=== PATIENT | female | born 1995 | race Caucasian/White ===

== ENCOUNTER → 2020-11-10 08:06 | Outpatient (CLI) | payer OTHER, SELFPAY ==
--- NOTE | 2020-11-10 08:10 | DI.US.S_ITS ---
PROCEDURE: US OB <= 14 WEEKS FETUS INDICATIONS: DATING. FOLLOW UP EXTREME PAIN WITH NO BLEEDING 10/24 OUTSIDE/PRIOR DATING DATA: Last menstrual period (LMP): Uncertain LMP-based estimated date of delivery (MADDIE): Uncertain First dating scan (date and location): This study Estimated date of delivery (MADDIE) from first dating scan: 06/30/21, +/-5 days. TECHNIQUE: Real-time scanning was performed of the fetus and maternal pelvic organs, with image documentation. Endovaginal scanning was also performed to better visualize the fetus and maternal ovaries. COMPARISON: None. FINDINGS: There is a single living intrauterine gestation with heart rate 127 beats per minute and a crown-rump length of 9 mm that correlates with a gestational age of 6 weeks 6 days, +/-5 days. Measurement variability in dating: +/- 4 weeks by LMP, +/- 7 days by mean sac diameter (use before 6 weeks gestation if crown-rump length not able to be measured), +/- 5 days by crown-rump length (up to 8 weeks 6 days gestation), +/- 7 days by crown-rump length (up to 13 weeks 6 days gestation). Maternal organs: Ovaries normal considering gestational status . IMPRESSION: Single living intrauterine gestation with delivery date projected to be centered on 06/30/21, +/-5 days. Dictated by: Vikash Carter M.D. on 11/10/2020 at 16:46 Approved by: Vikash Carter M.D. on 11/10/2020 at 16:48
== END ==
PROVIDERS: Referring Provider Family Medicine; Visit Provider Family Medicine
DX: Z34.01 Encounter for supervision of normal first pregnancy, first trimester (principal); Z3A.01 Less than 8 weeks gestation of pregnancy
CPT/HCPCS: 76801; 76817

== ENCOUNTER → 2020-11-21 12:20 | Outpatient (CLI) | payer OTHER, SELFPAY ==
--- NOTE | 2020-11-21 12:22 | DI.US.S_ITS ---
PROCEDURE: US OB <= 14 WEEKS FETUS INDICATIONS: VIABILITY, R/O ECTOPIC OUTSIDE/PRIOR DATING DATA: Last menstrual period (LMP): Unknown. LMP-based estimated date of delivery (MADDIE): Unknown First dating scan (date and location): 11/10/20 Estimated date of delivery (MADDIE) from first dating scan: 06/30/21 TECHNIQUE: Real-time scanning was performed of the fetus and maternal pelvic organs, with image documentation. Endovaginal scanning was also performed to better visualize the fetus and maternal ovaries. COMPARISON: [facility], OB <= 14 WEEKS FETUS, 11/10/2020, 8:40. FINDINGS: Embryo: Single living intrauterine fetus is present. [place]-rump length measures 1.9 cm, 8 weeks 3 days. Small perigestational hemorrhage is seen measuring 1.4 x 0.8 x 1.4 cm. Heart rate: 178 beats per minute Measurement variability in dating: +/- 4 weeks by LMP, +/- 7 days by mean sac diameter (use before 6 weeks gestation if crown-rump length not able to be measured), +/- 5 days by crown-rump length (up to 8 weeks 6 days gestation), +/- 7 days by crown-rump length (up to 13 weeks 6 days gestation). Maternal organs: Ovaries are unremarkable except for a left-sided presumed corpus luteum. IMPRESSION: 8 weeks 3 days single living intrauterine fetus. Small perigestational hemorrhage Dictated by: Timothy Bonilla M.D. on 11/21/2020 at 15:16 Approved by: Timothy Bonilla M.D. on 11/21/2020 at 15:18
== END ==
PROVIDERS: Referring Provider Obstetrics & Gynecology; Visit Provider Obstetrics & Gynecology
DX: O36.80X0 Pregnancy with inconclusive fetal viability, not applicable or unspecified; Z3A.08 8 weeks gestation of pregnancy
CPT/HCPCS: 76801; 76817

== ENCOUNTER → 2021-02-09 09:15 | Outpatient (CLI) | payer OTHER, SELFPAY ==
[2021-02-09 11:11] LABS: Add Manual Diff / Slide Review NO; Basophils Absolute Auto 0 /uL (0-100); Basophils Percent Auto 0.3 % (0-2); Eosinophils Absolute Auto 100 /uL (0-450); Eosinophils Percent Auto 0.9 % (2-4); Hematocrit 34.1 % (36-46); Hemoglobin 11.5 g/dL (12.0-16.0); Lymphocytes Absolute Auto 1500 /uL (1100-4500); Lymphocytes Percent Auto 14.5 % (25-40); Mean Corpuscular HGB Conc 33.8 % (30-36); Mean Corpuscular Hemoglobin 31.1 PG (26-34); Mean Corpuscular Volume 91.9 fL (80-100); Monocytes Absolute Auto 500 /uL (0-900); Monocytes Percent Auto 4.7 % (3-14); Neutrophils Absolute Auto 8400 /uL (1500-7000); Neutrophils Percent Auto 79.6 % (50-75); Platelet Count 226 X10^3/uL (150-400); Red Cell Distribution Width 13.1 % (11.6-14.8); White Blood Cell Count 10.5 X10^3/uL (4.5-11.0)
[2021-02-09 12:25] LABS: Appearance Urine UA CLEAR; Bilirubin Urine UA NEGATIVE (NEGATIVE); Color Urine UA YELLOW; Glucose Urine UA NEGATIVE (Negative); Ketones Urine UA NEGATIVE (NEGATIVE); Leukocyte Esterase Urine UA NEGATIVE (NEGATIVE); Nitrite Urine UA NEGATIVE (Negative); Occult Blood Urine UA NEGATIVE (Negative); Protein Urine UA NEGATIVE (Negative); Specific Gravity Urine UA <=1.005 (1.000-1.035); Urobilinogen Urine UA 0.2 E.U./dL (0.2)
[2021-02-09 18:11] LABS: Rubella Antibody IgG 21.9 IU/mL (>15)
[2021-02-09 18:22] LABS: HIV 1 & 2 Ab/Ag 4th Gen Combo NEGATIVE (NEGATIVE); Hep C Virus Ab w/Reflex Quant NEGATIVE s/c (NEGATIVE)
[2021-02-09 18:58] LABS: Hepatitis B Surface Antigen NEGATIVE s/c (NEGATIVE)
[2021-02-10 07:09] LABS: RPR Screen Non Reactive (Non Reactive)
[2021-02-10 11:26] LABS: Varicella IgG Antibody 238 index (Immune >165)
[2021-02-11 20:39] LABS: AFP, Serum 51.7 ng/mL (.); Estriol, Free 2.45 ng/mL (.); Inhibin A, Dimeric 100.02 pg/mL (.); Inhibin A, MoM 0.55 (.); Maternal Ethnicity Caucasian (.); Maternal Weight 170 lbs (.); Number of Fetuses No (.); OSBR Risk 1 IN 10000 (.); Results Report (.); Test Results *Screen Negative* (.); hCG, Serum 10779 mIU/mL (.)
== END ==
PROVIDERS: Referring Provider Obstetrics & Gynecology; Visit Provider Obstetrics & Gynecology
DX: Z34.02 Encounter for supervision of normal first pregnancy, second trimester (principal); Z3A.16 16 weeks gestation of pregnancy
CPT/HCPCS: 36415; 80055; 81003; 82105; 82677; 84702; 86336; 86787; 86803; 86850; 86900; 86901; 87086; 87389

== ENCOUNTER → 2021-03-10 14:03 | Outpatient (CLI) | payer OTHER, SELFPAY ==
--- NOTE | 2021-03-10 14:04 | DI.US.S_ITS ---
PROCEDURE: US OB >= 14 WEEKS FETUS INDICATIONS: ANATOMY SCAN OUTSIDE/PRIOR DATING DATA: Last menstrual period (LMP): Uncertain. First dating scan (date and location): [facility]; November 10, 2020 . Estimated date of delivery (MADDIE) from first dating scan: June 30, 2021 . TECHNIQUE: Real-time scanning was performed of the fetus, with image documentation and biometric measurements. COMPARISON: [facility], US, US OB >= 14 WEEKS FETUS, 02/09/2021, 9:04. FINDINGS: General: A single living intrauterine gestation is present. Presentation: Breech. Placenta: Placental position is posterior/fundal, without previa. Amniotic fluid index: 13.7 cm, normal range is 5-24 cm. heart rate: 152 beats per minute. Maternal cervical canal: 3 cm long. Normal lower limit is 2.5 cm. biometrics: Biparietal diameter: 5.6 cm Head circumference: 21.9 cm Abdominal circumference: 19.4 cm Femur length: 4.4 cm Estimated gestational age from initial scan: not applicable. Composite gestational age from present scan: 24 weeks Estimated weight and percentile: 672 g +/-99 g; 51 percentile Measurement variability for biometric dating: +/- 7 days from 14 weeks to 15 weeks 6 days gestation, +/- 10 days from 16 weeks to 21 weeks 6 days gestation, +/- 2 weeks from 22 weeks to 27 weeks 6 days gestation, +/- 3 weeks for 28 weeks gestation or later. weight reference: 4500 g or EFW >90/95% is considered macrosomia or large for gestational age. EFW <10% is small for gestational age. EFW 5% or less is considered intra-uterine growth restriction. Anatomic survey: Neuro: Ventricles are cerebellum are normal where visualized. Nuchal skin fold: Advanced gestational age. Face: Suboptimally visualized. Spine: Not well visualized, grossly normal. Heart: Suboptimally visualized. Diaphragm: Not well seen, grossly normal. Stomach: Left-sided stomach is present. Kidneys: Not well visualized, grossly normal. Cord: 3-vessel cord . Placental insertion not well seen. Bladder: Normal in size. Extremities: All 4 extremities identified. IMPRESSION: Live single intrauterine gestation as detailed above. Dictated by: Jaden Doty M.D. on 03/10/2021 at 16:22 Approved by: Jaden Doty M.D. on 03/10/2021 at 16:28
== END ==
PROVIDERS: PCP Obstetrics & Gynecology; Referring Provider Obstetrics & Gynecology; Visit Provider Obstetrics & Gynecology
DX: Z34.02 Encounter for supervision of normal first pregnancy, second trimester (principal); Z3A.24 24 weeks gestation of pregnancy
CPT/HCPCS: 76811

== ENCOUNTER → 2021-03-26 14:17 | Outpatient (CLI) | payer OTHER, SELFPAY ==
[2021-03-26 16:36] LABS: Hematocrit 31.9 % (36-46)
[2021-03-26 16:50] LABS: GTT (PREG) 1 Hour PP 50gm Dose 116 mg/dL (76-139)
== END ==
PROVIDERS: PCP Obstetrics & Gynecology; Referring Provider Obstetrics & Gynecology; Visit Provider Obstetrics & Gynecology
DX: Z34.02 Encounter for supervision of normal first pregnancy, second trimester (principal); Z3A.26 26 weeks gestation of pregnancy
CPT/HCPCS: 36415; 82950; 85014; 85018

== ENCOUNTER 2021-04-02 16:51 | Outpatient (CLI) | payer OTHER, SELFPAY ==
[2021-04-02 17:59] LABS: Appearance Urine UA CLEAR; Bilirubin Urine UA NEGATIVE (NEGATIVE); Color Urine UA YELLOW; Glucose Urine UA NEGATIVE (Negative); Ketones Urine UA NEGATIVE (NEGATIVE); Leukocyte Esterase Urine UA NEGATIVE (NEGATIVE); Nitrite Urine UA NEGATIVE (Negative); Occult Blood Urine UA NEGATIVE (Negative); Protein Urine UA NEGATIVE (Negative); Urobilinogen Urine UA 0.2 E.U./dL (0.2)
[2021-04-02 18:10] LABS: RBC Urine None Seen (0-5/HPF); Squamous Epithelial Cell Urine 1-5 /HPF (0-5/HPF); WBC Urine 0-1/HPF (0-5/HPF)
[2021-04-02 18:11] LABS: Bacteria Urine None Seen; Culture Indicated Urine Cult Not Indicated
--- NOTE | 2021-04-02 19:45 | PM.OBTRLD ---
Visit Information Visit Information Date of evaluation: 04/02/21 Primary OB Provider: Arely Barron On-call OB Provider: Kassidy Elias Reason for Evaluation: Yes pre-term labor Comments/Additional reasons for admission: concern for possible rupture membranes [facility] Medical History (Updated 04/02/21 @ 19:49 by Kassidy Elias MD) Abnormal Pap smear of cervix (~2015) Acne (~2018) Anxiety (~2015) Seasonal allergies Varicose veins of bilateral lower extremities with pain (~2017) Family History (Updated 11/14/20 @ 10:28 by Kady Evans RN) Mother Hypertension Uterine fibroid Father No problems noted. Grandmother Vertigo Grandfather Unknown family medical history Grandmother Unknown family medical history Grandfather Heavy smoker Lung cancer Social History marital status: unmarried,living together number of children: 2 household members: children (2 children partner's previous relationship, age 2 & 4. 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 ) special zen needs: No seatbelt use: always do you feel safe at home: Yes Smoking Status: Former smoker (While in [employer], socially, cigars & hookahs, 2 cigs/week.) Tobacco: How many years used: 2 quit status: has quit before second hand exposure: No alcohol intake: former (Pre-: social drinking) substance use type: does not use and prescription drug (Adderrall RX...took until she realized she was at 3 weeks.) during the past year weight has: remained stable well-balanced diet: daily or most days daily servings fruits/ve-4 caffeine: Yes (Normally a lot. Has really cut down. One cup a day. ) Type(s) of exercise: walking, yoga and normal ROM and activity (Lots of stretching.) frequency: daily duration: 45-60 minutes/day Review of Systems Review of Systems Narrative: Patient was concerned about possible leakage of fluid with a constant wetness. She was having some low back cramping sensation it has been increasing over the last few days when she gets home from work. No fevers. No bleeding. Objective Labs Labs: Laboratory Results - last 24 hr 04/02/21 17:20 Urine Color Yellow Urine Appearance Clear Urine pH 7.0 Ur Specific [place] 1.010 Urine Protein Negative Urine Glucose (UA) Negative Urine Ketones Negative Urine Occult Blood Negative Urine Nitrate Negative Urine Bilirubin Negative Urine Urobilinogen 0.2 Ur Leukocyte Esterase Negative Urine RBC None seen Urine WBC 0-1/hpf Ur Squamous Epith Cells 1-5 /hpf Urine Bacteria None seen Ur Culture Indicated? Cult not indicated Evaluation Evaluation Baseline heart rate: 150 Variability: Moderate (11-25) monitor accelerations: Present Monitor Decelerations: Absent Contraction Frequency (minutes): 0 Category of Tracing: Appropriate for gestational age Non-invasive Membranes Rupture Test: negative Diagnosis, Plan/Disposition Final Diagnosis (1) Low back pain during in second trimester: Status: Acute Plan/Disposition Plan: Patient with low back pain with no evidence of contractions, negative AmniSure. Patient reassured follow-up at her normal OB appointment. OB Disposition: home
== END 2021-04-02 17:50 | disposition home or self-care (01) ==
LOC: OB 04-07 11:15
PROVIDERS: PCP Obstetrics & Gynecology; Referring Provider Specialist; Visit Provider Specialist
DX: Z03.71 Encounter for suspected problem with amniotic cavity and membrane ruled out (principal); O26.892 Other specified pregnancy related conditions, second trimester; M54.50 Low back pain, unspecified; Z3A.27 27 weeks gestation of pregnancy
CPT/HCPCS: 59025; 81001; 84112; G0378; G0379

== ENCOUNTER → 2021-05-26 15:28 | Outpatient (CLI) | payer OTHER, SELFPAY ==
[2021-05-26 17:41] LABS: Urine N gonorrhoeae NOT DETECTED
[2021-05-26 18:02] LABS: Urine Chlamydia NOT DETECTED
== END ==
PROVIDERS: PCP Obstetrics & Gynecology; Referring Provider Obstetrics & Gynecology; Visit Provider Obstetrics & Gynecology
DX: Z34.03 Encounter for supervision of normal first pregnancy, third trimester (principal); Z3A.35 35 weeks gestation of pregnancy
CPT/HCPCS: 87491; 87591

== ENCOUNTER → 2021-06-09 11:56 | Outpatient (CLI) | payer OTHER, SELFPAY ==
[2021-06-09 14:13] LABS: COVID19 -Nasal RAPID POSITIVE (Negative)
== END ==
PROVIDERS: PCP Obstetrics & Gynecology; Visit Provider Physician Assistant
DX: U07.1 COVID-19 (principal); J02.9 Acute pharyngitis, unspecified; R50.9 Fever, unspecified; R53.83 Other fatigue; Z20.822 Contact with and (suspected) exposure to COVID-19
CPT/HCPCS: 87635

== ENCOUNTER → 2021-06-17 10:06 | Outpatient (CLI) | payer OTHER, SELFPAY ==
[2021-06-17 11:49] LABS: Strep Grp B PCR NEG for Grp B Strep
== END ==
PROVIDERS: PCP Obstetrics & Gynecology; Visit Provider Obstetrics & Gynecology
DX: Z34.03 Encounter for supervision of normal first pregnancy, third trimester (principal); Z3A.38 38 weeks gestation of pregnancy
CPT/HCPCS: 87653

== ENCOUNTER 2021-06-17 10:07 | Outpatient (CLI) | payer OTHER, SELFPAY ==
[2021-06-17 13:14] LABS: COVID19 -Nasal RAPID POSITIVE (Negative)
== END 2021-06-17 12:20 | disposition home or self-care (01) ==
LOC: LABOR 10:52 → OB 06-18 09:22
PROVIDERS: PCP Obstetrics & Gynecology; Referring Provider Obstetrics & Gynecology; Visit Provider Obstetrics & Gynecology
DX: O47.1 False labor at or after 37 completed weeks of gestation (principal); Z3A.38 38 weeks gestation of pregnancy; Z20.822 Contact with and (suspected) exposure to COVID-19; Z34.03 Encounter for supervision of normal first pregnancy, third trimester
CPT/HCPCS: 59025; 87081; 87635; 87653; C9803; G0378; G0379

== ENCOUNTER 2021-06-19 05:23 | Inpatient (IN) | payer OTHER, SELFPAY ==
[2021-06-19 06:46] LABS: COVID19 - ADMIT (NP swab/PCR) POSITIVE (Negative)
[2021-06-19 07:05] LABS: Add Manual Diff / Slide Review NO; Basophils Absolute Auto 100 /uL (0-100); Basophils Percent Auto 0.5 % (0-2); Eosinophils Absolute Auto 0 /uL (0-450); Eosinophils Percent Auto 0.2 % (2-4); Hematocrit 34.5 % (36-46); Hemoglobin 11.8 g/dL (12.0-16.0); Lymphocytes Absolute Auto 1600 /uL (1100-4500); Lymphocytes Percent Auto 7.9 % (25-40); Mean Corpuscular HGB Conc 34.2 % (30-36); Mean Corpuscular Hemoglobin 30.7 PG (26-34); Mean Corpuscular Volume 89.8 fL (80-100); Monocytes Absolute Auto 1100 /uL (0-900); Monocytes Percent Auto 5.7 % (3-14); Neutrophils Absolute Auto 17300 /uL (1500-7000); Neutrophils Percent Auto 85.7 % (50-75); Platelet Count 252 X10^3/uL (150-400); Red Blood Cell Count 3.84 X10^6/uL (4.0-5.2); Red Cell Distribution Width 12.2 % (11.6-14.8); White Blood Cell Count 20.2 X10^3/uL (4.5-11.0)
[2021-06-19] MEDS: LACTATED RINGERS 1,000 ML 100 ML IV ×3 (07:41→13:58)
[2021-06-19 08:16] VITALS: BP 124/72
--- NOTE | 2021-06-19 08:33 | PM.OBHP.IH.1 ---
OB HPI Date/Time Date of admission: 06/19/21 Date Patient Seen: 06/19/21 Time Patient Seen: 07:50 History of Present Condition Chief complaint: OBS MADDIE Calculator Estimated Delivery Date Method Current WG Current Estimate 06/30/21 Ultrasound #1 38w 3d Other Estimates 06/27/21 LMP (Certain) 38w 6d Estimated Gestational Age (weeks): 38w3d : 1 Para: 0 Narrative: 25yo at 38w3d who presented with regular painful contractions. The pt reports contractions starting earlier in the evening, increasing in frequency and intensity since then. They were every 5 minutes prior to presentation. She denies any LOF or vaginal bleeding. She is feeling her baby move regularly. She has had an uncomplicated . care: good care, initiated at week # (7) and pounds weight gain (43) Dating criteria OB: based on 1st trimester US only Ultrasounds: normal 1st trimester US and normal mid trimester US Obstetrical complications: none Medical complications OB: none Preadmission Labs Last OB Lab Results: Blood Type A Positive 06/19/21 06:56 06/19/21 Antibody Screen Negative 06/19/21 06:56 06/19/21 Hematocrit 34.5 % (36-46) L 06/19/21 06:56 06/19/21 Hemoglobin 11.8 g/dL (12.0-16.0) L 06/19/21 06:56 06/19/21 Hepatitis B Surface Antigen Negative s/c (NEGATIVE) 02/09/21 09:23 02/09/21 Hepatitis C Antibody Negative s/c (NEGATIVE) 02/09/21 09:23 02/09/21 Rubella Antibody 21.9 IU/mL (>15) 02/09/21 09:23 02/09/21 Varicella-Zoster IgG Antibody 238 index (Immune >165) 02/09/21 09:23 02/09/21 Glucose 1 Hour 116 mg/dL (76-139) 03/26/21 15:32 03/26/21 Group B Streptococcus (PCR) Neg for grp b strep 06/17/21 10:06 06/17/21 -: Chlamydia screen: negative, Gonorrhea screen: negative and Urine: negative Genetic Screens: Quad screen: Normal External Labs -: Urine: negative Evaluation Evaluation Baseline heart rate: 150 Variability: Moderate (11-25) monitor accelerations: Present Monitor Decelerations: Absent Contraction Frequency (minutes): 5 Status: Category l Dilation (cm): 6 Effacement (%): 90 station: 0 PFSH Medical History (Updated 04/02/21 @ 19:49 by Kassidy Elias MD) Abnormal Pap smear of cervix (~2015) Acne (~2018) Anxiety (~2015) Seasonal allergies Varicose veins of bilateral lower extremities with pain (~2017) Family History (Updated 11/14/20 @ 10:28 by Kady Evans RN) Mother Hypertension Uterine fibroid Father No problems noted. Grandmother Vertigo Grandfather Unknown family medical history Grandmother Unknown family medical history Grandfather Heavy smoker Lung cancer Social History marital status: unmarried,living together number of children: 2 household members: children (2 children partner's previous relationship, age 2 & 4. 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 ) special zen needs: No seatbelt use: always do you feel safe at home: Yes Smoking Status: Former smoker Tobacco: How many years used: 2 quit status: has quit before second hand exposure: No alcohol intake: former (Pre-: social drinking) substance use type: does not use and prescription drug (Adderrall RX...took until she realized she was at 3 weeks.) during the past year weight has: remained stable well-balanced diet: daily or most days daily servings fruits/ve-4 caffeine: Yes (Normally a lot. Has really cut down. One cup a day. ) Type(s) of exercise: walking, yoga and normal ROM and activity (Lots of stretching.) frequency: daily duration: 45-60 minutes/day Meds Home Medications and Allergies Home Medications Medication Instructions Recorded Confirmed Type doxylamine succinate 25 mg tablet 25 mg PO BEDTIME PRN 12/09/20 06/19/21 History (Unisom (doxylamine)) fluticasone propionate 50 1 spray INTRANASAL DAILY 12/09/20 06/19/21 History mcg/actuation nasal spray,suspension prenat.vits,tiny,[id number] 1 tab PO DAILY 12/09/20 06/19/21 History pantoprazole 40 mg tablet,delayed 40 mg PO DAILY #30 tab 02/09/21 06/19/21 Rx release (Protonix) Allergies Allergy/AdvReac Type Severity Reaction Status Date / Time No Known Drug Allergies Allergy Verified 06/17/21 09:47 OB Exam Narrative Exam Narrative: Gen: NAD, sitting comfortably in bed, appears well CV: RRR, no murmurs Resp; clear to auscultation bilaterally Abd: soft, nontender, gravid Ext: trace edema Objective Labs Result Diagrams: 06/19/21 06:56 Labs: Laboratory Results - last 24 hr 06/19/21 06/19/21 06/19/21 05:50 06:56 06:56 WBC 20.2 H RBC 3.84 L Hgb 11.8 L Hct 34.5 L MCV 89.8 MCH 30.7 MCHC 34.2 RDW 12.2 Plt Count 252 Neut % (Auto) 85.7 H Lymph % (Auto) 7.9 L [place] % (Auto) 5.7 Eos % (Auto) 0.2 L Baso % (Auto) 0.5 Neut # (Auto) 03358 H Lymph # (Auto) 1600 [place] # (Auto) 1100 H Eos # (Auto) 0 Baso # (Auto) 100 SARS-CoV-2 (PCR) Positive H Blood Type A Positive Antibody Screen Negative Assessment and Plan Assessment and Plan Assessment and Plan narrative: 25yo at 38w3d here in labor. GBS negative, Rh positive. No complications with . - Expectant management, anticipate - Epidural now for pain control - FHT reassuring - GBS negative, no prophylaxis indicated
--- NOTE | 2021-06-19 11:41 | PM.OBPNLAB ---
Date/Time Date Patient Seen: 06/19/21 Time Patient Seen: 10:45 Pain Control Pain control: epidural Pelvic Exam Dilation (cm): 7 Effacement (%): 100 station: 0 Comments: After informed consent, AROM performed with production of clear fluid. Status status: Category ll Heart Rate Baseline: 135 Monitor Accelerations: Present Monitor Decelerations: Variable Monitor Variability: Moderate Assessment and Plan Comments: 25yo at 38w3d here in labor. GBS negative, Rh positive. No complications with . AROM performed with production of clear fluid. Pt with 2 variable decels, but otherwise FHT reassuring at this time. Pt making gradual progress. Not picking up contractions well on monitoring. - Expectant management, anticipate - Epidural now for pain control - FHT reassuring - GBS negative, no prophylaxis indicated
--- NOTE | 2021-06-19 13:19 | PM.OBPNLAB ---
Date/Time Date Patient Seen: 06/19/21 Time Patient Seen: 13:00 Pain Control Pain control: epidural Pelvic Exam Dilation (cm): 8.5 Effacement (%): 100 station: +1 Amniotic membrane status: Ruptured Contractions Monitor mode: Internal Contraction frequency (min): 2 Contraction duration (min): 1 Contraction pattern: Regular Intrauterine tone measurement: 280 Status status: Category ll Heart Rate Baseline: 130 Monitor Accelerations: Present Monitor Decelerations: Variable Monitor Variability: Moderate Assessment and Plan Comments: 25yo at 38w3d here in labor. GBS negative, Rh positive. No complications with . AROM performed with production of clear fluid. Was not able to steel pickler contractions, and pt having recurrent variable appearing decels. IUPC placed to allow for improved monitoring. Pt with very frequent contractions. Will continue oxygen, position changes, and also bolus IVF. Plan to start amnioinfusion if decels not improving and delivery not imminent. - Expectant management, anticipate - Epidural in place for pain control - GBS negative, no prophylaxis indicated
[2021-06-19] MEDS: OXYTOCIN PREMIX 30 UNIT/500 ML PLAST..BAG 200 UNIT IV (15:20)
--- NOTE | 2021-06-19 15:41 | PM.OBPRVD ---
Labor & Delivery Delivery date: 06/19/21 Intrapartal Events: Deceleration Cervical ripening method: none Induction method: none Delivery augmentation: rupture of membranes Delivery monitor: external FHT and internal uterine Route of delivery: vacuum extraction Indication for instrumentation: nonreassuring FHR tracing Episiotomy description: None L&D Laceration Description: Labial Delivery repair: chromic Estimated blood loss (mL): 200 Anesthesia Type: Epidural Complications: None Narrative: PROCEDURE: at 38w3d presented in active labor and was admitted to Labor and Delivery. The patient progressed through the 1st stage over 8.5 hours. Pain was controlled with an epidural. AROM was performed with production of clear fluid. Due to difficulty monitoring contractions, IUPC was placed. The pt was having intermittent variable decels. In the 2nd stage, the pt was noted to have recurrent variable decels. She was pushing effectively. The decels progressively became deeper with longer return to baseline, and it was determined appropriate to proceed with vacuum-assisted delivery. Patient was evaluated and noted to have adequate pain control. Patient counseled on risks/benefits/alternatives of vacuum assisted delivery. Risks were discussed and they included but were not limited to a need for an episiotomy, pressure jaramillo on the baby, lacerations to the baby's scalp/face, serious damage including skull fracture, the need to proceed with an abdominal procedure, , paralysis of the baby's arms and/or legs, neurological impairment of the baby. Alternatives would include CS or further observation depending on status. Questions were answered and the patient verbalized an understanding and decided to proceed. Cervix completely dilated and maternal bladder emptied as jordan catheter had just been removed. Maternal pelvis was noted to be adequate. Vacuum cup of the [employer] OmniC[employer] applied to the flexion point without difficulty and during contractions, pressure applied between 400-600 mmHg as indicated in the green zone of the pressure gauge. delivered after 3 contractions with 0 pop-offs over an intact perineum. Total duration of application of the vacuum was 4 minutes. The anterior shoulder and remainder of the infant was delivered without difficulty. Delivery time was 3:12pm, with a second stage of labor lasting 1.5 horus. The infant was placed on maternal abdomen, and started crying after stimulation with good tone and color. APGARs 8/9. The cord was cut and clamped after it stopped pulsating. was examined and no evidence of injury noted. The perineum and vagina were inspected with deep right labial laceration repaired with 2-O Chromic. PREPROCEDURE DIAGNOSIS: Intrauterine at 38w3d GBS negative RH positive POSTPROCEDURE DIAGNOSIS: Intrauterine at 38w3d, delivered Same as preprocedure Nonreassuring heart tones Vacuum-assisted vaginal delivery [place] Baby 1: gender: Male Presentation: vertex Position: Left Occiput Anterior Placenta delivery description: Spontaneous Cord Vessel Description: 3 Vessels score (1 min): 8 score (5 min): 9 weight: 6 lb 14.337 oz Plan for aftercare: Routine care
[2021-06-19] MEDS: LANOLIN OINT 7 GM 1 APPLIC TOP (18:38)
[2021-06-19] MEDS: IBUPROFEN 600 MG TABLET PO (18:38)
[2021-06-19] MEDS: ACETAMINOPHEN 325 MG TABLET 650 MG PO (18:38)
[2021-06-20] MEDS: ACETAMINOPHEN 325 MG TABLET 650 MG PO ×2 (00:29→06:28)
[2021-06-20] MEDS: IBUPROFEN 600 MG TABLET PO ×2 (00:29→06:28)
[2021-06-20 08:01] VITALS: BP 109/64; PULSE 74; RESP 16; TEMP 36.4
[2021-06-20] MEDS: PANTOPRAZOLE DR 40 MG TABLET PO (10:34)
[2021-06-20] MEDS: DOCUSATE 100 MG CAPSULE PO (10:34)
[2021-06-20] MEDS: PRENATAL VIT,CALC/IRON/FOLIC 1 TABLET 1 TAB PO (10:34)
--- NOTE | 2021-06-20 10:59 | P.DS_ITS ---
Discharge Providers Provider Date of admission: 06/19/21 05:23 Discharge Date: 06/20/21 Primary care physician: Arely Barron MD Consults: 06/20/21 16:02 Consult to Access Lead Routine Comment: Discharge provider: Brionna Costello MD Summary Hospital Course Date Patient Seen: 06/20/21 Time Patient Seen: 10:35 Diagnoses: 38w3d gestation COVID positive Rh positive GBS negative Vacuum-assisted vaginal delivery Nonreassuring heart tones Meconium-stained amniotic fluid Hospital Course: The pt presented in active labor. She received an epidural for pain control. AROM was performed with production of clear fluid. There was difficult monitoring maternal contractions, and due to intermittent decels IUPC was placed for better monitoring. The pt progressed to complete, with variables present. Due to nonreassuring heart tones in the 2nd stage with deepening variable decels and poor return to baseline, the pt had a vacuum-assisted vaginal delivery of a viable baby boy. Significant meconium was noted immediately b efore and after delivery. A right labial laceration was then repaired. There were no complications with delivery. The pt tolerated delivery well. , there were no complications. At the time of discharge she was voiding, ambulating, and passing flatus without difficulty. Her lochia was decreasing appropriately. Her pain was well controlled. She was with good latch, using the nipple shield. She will f/u in clinic for her 6wk check. Peripartum Data Infant Delivery Method: Assisted Delivery Laceration Description: Labial Episiotomy description: None Procedures: Vacuum-assisted vaginal delivery complications: none [place] 1: Gender: Male Disposition of : home Discharge Diagnosis (1) Vacuum-assisted vaginal delivery: Status: Acute Status at Discharge Cognitive/behavioral status at discharge: oriented Functional status at discharge: independent ambulation Overall status at discharge: patient is progressing back to baseline Time Spent with Patient Time attestation: Total time spent providing and/or coordinating discharge services: Objective Labs Result Diagrams: 06/19/21 06:56 Exam Vital Signs (past 8 hours): - 06/20/21 08:01 Temperature 97.6 F Pulse Rate 74 Respiratory Rate 16 Blood Pressure 109/64 Narrative Exam Narrative: Gen: NAD, sitting comfortably in bed, appears well CV: RRR, no murmurs Resp: clear to auscultation bilaterally Abd: soft, appropriately tender, fundus firm and below the umbilicus, nondistended Ext: no edema Discharge Plan Discharge Plan Patient Disposition: Home Discharge orders & Medications Prescriptions: Continued fluticasone propionate 50 mcg/actuation spray,suspension 1 spray intranasal DAILY 0RF Rx Instructions: administer into each nostril prenat.vits,tiny,[id number] Tablet 1 tab PO DAILY 0RF pantoprazole [Protonix] 40 mg tablet,delayed release (DR/EC) 40 mg PO DAILY Qty: 30 5RF Discontinued Unisom (doxylamine) 25 mg tablet 25 mg PO BEDTIME PRN (Reason: Sleep) 0RF Follow up/Referrals: Arely Barron MD [Primary Care Provider] - ( appt: August 03 @ 2pm w/ Dr. Barron) Diet/Activity/Treatments Diet: Diet as Tolerated and Regular Skin/Wound/Dressing Care Report to your healthcare provider any signs of infection, such as:: chills, fever, increased pain and unusual drainage Visit Report/Discharge Packet Instructions: DI for Labor and Delivery, Vaginal Stand Alone Forms: Discharge: Care Visit Report Forms: Patient Portal/API, Stroke Signs & Symptoms Discharge Data Primary Care Provider: Arely Barron Attending Provider: Arely Barron Admit Date/Time: 06/19/21 05:23 Discharges patient from system. Discharge Date/Time: 06/20/21 12:14
== END 2021-06-20 12:14 | disposition home or self-care (01) | DRG 805 ==
PROVIDERS: Obstetrics & Gynecology; Admitting Provider Obstetrics & Gynecology; PCP Obstetrics & Gynecology; Referring Provider Obstetrics & Gynecology; Visit Provider Obstetrics & Gynecology
DX: O76 Abnormality in fetal heart rate and rhythm complicating labor and delivery (principal); U07.1 COVID-19; Z37.0 Single live birth; O98.52 Other viral diseases complicating childbirth; Z3A.38 38 weeks gestation of pregnancy; O70.0 First degree perineal laceration during delivery; O77.0 Labor and delivery complicated by meconium in amniotic fluid
CPT/HCPCS: 01967; 36415; 59050; 59400; 59409; 85025; 86850; 86900; 86901; 87635; C9803; G0378; G0379; J2590

== ENCOUNTER → 2024-05-11 12:07 | Outpatient (CLI) | payer OTHER, SELFPAY ==
[2024-05-11 13:33] LABS: Add Manual Diff / Slide Review NO; Basophils Absolute Auto 0 /uL (0-100); Basophils Percent Auto 0.2 % (0-2); Eosinophils Absolute Auto 100 /uL (0-450); Eosinophils Percent Auto 0.5 % (2-4); Hematocrit 36.8 % (36-46); Hemoglobin 12.2 g/dL (12.0-16.0); Lymphocytes Absolute Auto 1600 /uL (1100-4500); Lymphocytes Percent Auto 12.7 % (25-40); Mean Corpuscular HGB Conc 33.3 % (30-36); Mean Corpuscular Hemoglobin 30.1 PG (26-34); Mean Corpuscular Volume 90.5 fL (80-100); Monocytes Absolute Auto 600 /uL (0-900); Monocytes Percent Auto 4.9 % (3-14); Neutrophils Absolute Auto 10300 /uL (1500-7000); Neutrophils Percent Auto 81.7 % (50-75); Platelet Count 285 X10^3/uL (150-400); Red Blood Cell Count 4.07 X10^6/uL (4.0-5.2); Red Cell Distribution Width 12.6 % (11.6-14.8); White Blood Cell Count 12.7 X10^3/uL (4.5-11.0)
[2024-05-11 14:02] LABS: Natera Collection Specimen Collected
[2024-05-12 07:36] LABS: RPR Screen Non Reactive (Non Reactive)
== END ==
PROVIDERS: Referring Provider Obstetrics & Gynecology; Visit Provider Obstetrics & Gynecology
DX: Z34.81 Encounter for supervision of other normal pregnancy, first trimester (principal)
CPT/HCPCS: 80055; 86787; 86803; 86850; 86900; 86901; 87086; 87389

== ENCOUNTER → 2024-05-11 12:08 | Outpatient (CLI) | payer OTHER, SELFPAY ==
[2024-05-11 14:59] LABS: Urine N gonorrhoeae NOT DETECTED
[2024-05-11 15:09] LABS: Urine Chlamydia NOT DETECTED
== END ==
PROVIDERS: Visit Provider Obstetrics & Gynecology
DX: Z34.00 Encounter for supervision of normal first pregnancy, unspecified trimester (principal); Z11.3 Encounter for screening for infections with a predominantly sexual mode of transmission
CPT/HCPCS: 80055; 86787; 86803; 86850; 86900; 86901; 87086; 87389; 87491; 87591

== ENCOUNTER → 2024-06-28 08:55 | Outpatient (CLI) | payer OTHER, SELFPAY ==
--- NOTE | 2024-06-28 08:57 | DI.US.S_ITS ---
PROCEDURE: US OB >= 14 WEEKS FETUS INDICATIONS: ANATOMY OUTSIDE/PRIOR DATING DATA: Last menstrual period (LMP): 02/11/2024. LMP-based estimated date of delivery (MADDIE): 11/17/2024 (working MADDIE). First dating scan (date and location): 05/11/2024. TECHNIQUE: Real-time scanning was performed of the fetus, with image documentation and biometric measurements. COMPARISON: [facility], , OB <= 14 WEEKS FETUS, 05/11/2024, 11:55. [facility], , US OB >= 14 WEEKS FETUS, 05/05/2021, 17:20. FINDINGS: General: A single living intrauterine gestation is present. Presentation: Variable. Placenta: Placental position is posterior fundal , without previa. Amniotic fluid index: 15.7 cm, normal range is 5-24 cm. Single deepest vertical pocket is 4.7 cm. heart rate: 152 beats per minute. Maternal cervical canal: 3.6 cm long. Normal lower limit is 2.5 cm. biometrics: Biparietal diameter: 4.2 cm, 18 weeks and 4 days Head circumference: 15 cm, 18 weeks and 1 day Abdominal circumference: 13.3 cm, 18 weeks and 5 days Femur length: 2.7 cm, 18 weeks and 2 days Clinically estimated gestational age: 19 weeks and 5 days Composite gestational age from present scan: 18 weeks and 3 days Estimated weight and percentile: 244 g, 4th percentile Anatomic survey: Neuro: Ventricles are non-dilated at less than 10 mm. Cisterna magna is normal at 3-11 mm. Cerebellum is normal in size and morphology. Nuchal skin fold: Normal at less than 6 mm between 14-21 weeks gestational age. Face: Nose and lips, facial profile are normal. Spine: No evidence for spina bifida. Heart: 4-chambered heart is present, with normal ventricular outflow tracts. Diaphragm: Diaphragm is intact. Stomach: Left-sided stomach is present. Kidneys: No hydronephrosis. Normal is less than 5 mm in 2nd trimester, less than 7 mm in 3rd trimester. The renal pelvises measure 3-4 mm. Cord: 3-vessel cord has orthotopic insertion. Bladder: Normal in size. Extremities: All 4 extremities identified. IMPRESSION: Living intrauterine gestation at 19 weeks and 5 days (working MADDIE based by LMP). EFW is at the 4th percentile, lower than expected. Normal URMILA. Follow-up is recommended for growth. No significant abnormalities on routine anatomic survey otherwise. Dictated by: Eddie Sweet M.D. on 06/28/2024 at 12:46 Approved by: Eddie Sweet M.D. on 06/28/2024 at 12:51
== END ==
PROVIDERS: Referring Provider Obstetrics & Gynecology; Visit Provider Obstetrics & Gynecology
DX: Z36.89 Encounter for other specified antenatal screening (principal); Z3A.19 19 weeks gestation of pregnancy
CPT/HCPCS: 76811

== ENCOUNTER → 2024-07-02 11:35 | Outpatient (CLI) | payer OTHER, SELFPAY ==
[2024-07-03 13:39] LABS: Candida species Negative (Negative); Gardnerella vaginalis Negative (Negative); Trichomoas vaginalis Negative (Negative)
== END ==
PROVIDERS: Visit Provider Obstetrics & Gynecology
DX: N89.8 Other specified noninflammatory disorders of vagina (principal)
CPT/HCPCS: 87480; 87510; 87660

== ENCOUNTER → 2024-07-05 15:02 | Outpatient (CLI) | payer OTHER, SELFPAY | PROVIDERS: Referring Provider Obstetrics & Gynecology; Visit Provider Obstetrics & Gynecology | DX: Z34.92 Encounter for supervision of normal pregnancy, unspecified, second trimester (principal); Z3A.20 20 weeks gestation of pregnancy | CPT/HCPCS: 36415; 82105 ==

== ENCOUNTER → 2024-08-24 11:54 | Outpatient (CLI) | payer OTHER, SELFPAY ==
[2024-08-24 14:02] LABS: Hematocrit 32.5 % (36-46); Hemoglobin 11.2 g/dL (12.0-16.0)
[2024-08-24 14:15] LABS: GTT (PREG) 1 Hour PP 50gm Dose 117 mg/dL (76-139)
== END ==
PROVIDERS: Referring Provider Obstetrics & Gynecology; Visit Provider Obstetrics & Gynecology
DX: Z34.82 Encounter for supervision of other normal pregnancy, second trimester (principal); Z3A.26 26 weeks gestation of pregnancy
CPT/HCPCS: 82950; 85014; 85018

== ENCOUNTER → 2024-10-19 10:38 | Outpatient (CLI) | payer OTHER, SELFPAY ==
[2024-10-20 11:02] LABS: Strep Grp B PCR NEG for Grp B Strep
== END ==
PROVIDERS: Visit Provider Obstetrics & Gynecology
DX: Z34.93 Encounter for supervision of normal pregnancy, unspecified, third trimester (principal); Z3A.36 36 weeks gestation of pregnancy
CPT/HCPCS: 87653

== ENCOUNTER 2024-11-14 11:34 | Inpatient (IN) | payer OTHER, SELFPAY ==
--- NOTE | 2024-11-14 13:42 | PM.OBHP.IH.1 ---
OB HPI Date/Time Date of admission: 11/14/24 Date Patient Seen: 11/14/24 Time Patient Seen: 11:30 History of Present Condition Chief complaint: L&D MADDIE Calculator Estimated Delivery Date Method Current WG Current Estimate 11/17/24 LMP (Certain) 40w 1d Other Estimates 12/02/24 Ultrasound #1 38w 0d 11/17/24 Ultrasound #2 40w 1d Estimated Gestational Age (weeks): 39+4 : 3 Para: 1 Narrative: Patient is a 28-year-old 3 para 1 who presents in active labor care: initiated at week # (12), number of visits (12) and pounds weight gain (35) Dating criteria OB: LMP confirmed by 1st trimester US Ultrasounds: normal 1st trimester US and abnormal US findings (Marginal insertion of the umbilical cord) Obstetrical complications: other (Marginal insertion of the umbilical cord) Medical complications OB: none Preadmission Labs Last OB Lab Results: Blood Type A Positive 05/11/24, 13:02 Antibody Screen Negative 05/11/24, 13:02 Hct, (36-46) 34.8 % L Today, 16:38 Hgb, (12.0-16.0) 12.0 g/dL Today, 16:38 Hep Bs Antigen, (NEGATIVE) Negative s/c 05/11/24, 13:02 Hepatitis C Antibody, (NEGATIVE) Negative s/c 05/11/24, 13:02 Rubella Antibody, (>15) 25.8 IU/mL 05/11/24, 13:02 VZV IgG Antibody, (Non Reactive) Reactive 05/11/24, 13:02 Glucose 1 Hr 50 gm, (76-139) 117 mg/dL 08/24/24, 13:22 Group B Strep (PCR) Neg for grp b strep 10/19/24, 10:38 -: Chlamydia screen: negative, Gonorrhea screen: negative and Urine: negative -: PAP smear: Normal Genetic Screens: Cell-free DNA: Normal (Normal male) and Alpha-fetoprotein: Normal External Labs -: Urine: negative Prior (ies) Past Pregnancies Del. Date GA/Weeks Labor Lgth Wt Sex Route Outcome Anesthesia Place Delv Breastfeed Preg Comp Name 06/19/21 38.3 8 6 lb 14 oz Male vaginal vacuum live - full term epidural IH 1 year none [place] 05/12/23 5 elective Delivery Date: 05/12/23 Last Updated by: Candis Cuevas RN D&C, no complications Hx # Term Pregnancies: 1 Hx # Pregnancies: 0 Number of Living Children: 1 Spontaneous abortions: 0 Ectopic pregnancies: 0 Elective abortions: 1 Evaluation Evaluation Baseline heart rate: 135 Variability: Moderate (6-25) monitor accelerations: Present Monitor Decelerations: Absent Contraction Frequency (minutes): 3 Uterine Contraction Intensity: Strong/Firm Status: Category l Dilation (cm): 6 Effacement (%): 100 station: -1 Position of cervix: anterior Consistency: soft PFSH Medical History Sore nipples due to Vacuum-assisted vaginal delivery Low back pain during in second trimester Varicose veins during , antepartum Gastroesophageal reflux in Seasonal allergies Anxiety (~2015) Abnormal Pap smear of cervix (~2015) Acne (~2018) Varicose veins of bilateral lower extremities with pain (~2017) Surgical History History of vascular surgery Family History Mother Hypertension Uterine fibroid Father Adopted Grandmother Vertigo Grandfather Unknown family medical history Grandmother No problems noted. 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 ) special zen needs: No travel history: over 6 months ago seatbelt use: always helmet use: Yes working smoke detector in home: Yes fire extinguisher in home: Yes carbon monox detector in home: Yes firearms in home: Yes firearms unloaded and locked: Yes do you feel safe at home: Yes Smoking Status: Never smoker Tobacco: How many years used: 2 quit status: has quit before second hand exposure: No alcohol intake: former (~3/week when not ) substance use type: does not use during the past year weight has: remained stable well-balanced diet: daily or most days daily servings fruits/ve or more times/day caffeine: Yes (Normally a lot. Has really cut down. One cup a day. ) Type(s) of exercise: walking frequency: daily duration: 45-60 minutes/day Meds Home Medications and Allergies Home Medications ?Medication ?Instructions ?Recorded ?Confirmed ?Type fluticasone propionate 50 1 spray intranasal DAILY 12/09/20 11/09/24 History mcg/actuation nasal spray,suspension [id number] 400 mcg-om3 35 mg-dha 25 tab PO 05/04/24 11/09/24 History mg-epa 5 mg-fish oil chewable tablet iron, carbonyl 18 mg iron chewable 18 mg PO DAILY 05/04/24 11/09/24 History tablet (Ferretts Carbonyl Iron) citalopram 20 mg tablet (Celexa) 20 mg PO DAILY #30 tabs 10/26/24 11/09/24 Rx hydroxyzine HCl 25 mg tablet 25 mg PO BID PRN anxiety #20 tabs 10/26/24 11/09/24 Rx Allergies Allergy/AdvReac Type Severity Reaction Status Date / Time No Known Drug Allergies Allergy Verified 11/18/24 14:21 OB Exam Narrative Exam Narrative: Generally: Patient breathing somewhat through the contractions, no acute distress Fundal height: 39 cm Estimated weight: 7 lb Extremities: Trace edema, varicose veins in both legs Objective Labs 11/15/24 05:54 Assessment and Plan Assessment and Plan Assessment and Plan narrative: Assessment: 28-year-old 3 para 1 at 40-,2/7 weeks gestation in active labor Plan: Epidural as needed Artificial rupture of membranes if necessary Expectant management to spontaneous vaginal delivery Time-Based Coding :: [TOTAL MINUTES] spent with patient and on the chart (including review of chart, obtaining history, exam, reviewing outside data, placing orders, documenting exam and treatment plan, and counseling patient) on [DATE].
[2024-11-14 14:14] VITALS: BP 126/82
[2024-11-14] MEDS: OXYTOCIN PREMIX 30 UNIT/500 ML PLAST..BAG 95 UNIT IV (16:56)
[2024-11-14] MEDS: LACTATED RINGERS 1,000 ML 1000 ML IV (17:20)
[2024-11-14] MEDS: WITCH HAZEL/GLYCERIN PADS 1 EACH TOP (17:46)
[2024-11-14] MEDS: ACETAMINOPHEN 325 MG TABLET 650 MG PO (17:46)
[2024-11-14] MEDS: DERMOPLAST SPRAY 20% 60 ML 1 SPRAY TOP (17:47)
[2024-11-14 18:45] LABS: Hematocrit 37.6 % (36-46); Hemoglobin 12.6 g/dL (12.0-16.0)
[2024-11-14] MEDS: CITALOPRAM 10 MG TABLET 20 MG PO (19:55)
[2024-11-15] MEDS: ACETAMINOPHEN 325 MG TABLET 650 MG PO ×3 (00:03→14:01)
[2024-11-15 06:10] LABS: Hematocrit 36.4 % (36-46); Hemoglobin 12.6 g/dL (12.0-16.0)
[2024-11-15] MEDS: WITCH HAZEL/GLYCERIN PADS 1 EACH TOP (09:53)
[2024-11-15] MEDS: DERMOPLAST SPRAY 20% 60 ML 1 SPRAY TOP (09:53)
[2024-11-15] MEDS: IBUPROFEN 600 MG TABLET PO (10:18)
[2024-11-15 14:30] VITALS: BP 113/74; PULSE 78; RESP 14; TEMP 36.7
--- NOTE | 2024-11-18 19:32 | PM.OBPRVD ---
Labor & Delivery Delivery date: 11/14/24 Delivery Time: 15:13 Intrapartal Events: None Cervical ripening method: none Induction method: none Delivery augmentation: rupture of membranes Delivery monitor: external FHT and external uterine Route of delivery: Episiotomy description: None L&D Laceration Description: Perineal - 1st Degree Delivery repair: chromic Estimated blood loss (mL): 100 Anesthesia Type: Local (for repair) Complications: None Narrative: Patient complete and pushed for 10 minutes. At 3:13 p.m., a live male delivered spontaneously in the PRANAV presentation, over an intact perineum. Nuchal cord x1 reduced on the perineum. The remainder of the body delivered without difficulty and was placed on mom's abdomen. The cord was double clamped and cut after the cord stopped pulsing. Cord bloods were obtained. Pitocin was given in the IV fluids. The placenta delivered intact with a three-vessel cord at 3:33 p.m.. The fundus was massaged to firm. A first-degree perineal laceration was repaired in the usual fashion with 2-0 chromic, after 10 cc of 1% lidocaine were injected. Hemostasis was achieved. Apgars 7 at 1 minute and 9 at 5 minutes. weight 7 lb 4.5 oz. . Mom and stable to recovery. Baby 1: gender: Male Presentation: vertex Position: Left Occiput Anterior Placenta delivery description: Spontaneous Cord Vessel Description: 3 Vessels, Nuchal Cord (Loose, reduced on the perineum) and Clamped/Cut (After the cord stopped pulsing) score (1 min): 7 score (5 min): 9 weight: 7 lb 4.5 oz Plan for aftercare: Routine care
--- NOTE | 2024-11-18 19:36 | P.DS_ITS ---
Discharge Providers Provider Date of admission: 11/14/24 11:34 Discharge Date: 11/15/24 Primary care physician: Doctor Brynn MD Consults: 11/14/24 16:46 Consult to [employer] Coating Supervisor Routine Comment: 11/14/24 18:28 Consult to [employer] Coating Supervisor Routine Comment: Discharge provider: Arely Barron MD Summary Hospital Course Date Patient Seen: 11/15/24 Time Patient Seen: 12:15 Diagnoses: 39-4/7 weeks gestation Spontaneous vaginal delivery First-degree perineal laceration Nuchal cord x1 Hospital Course: Patient is a 28-year-old 3 para 2 who presented on November 14, 2024 in active labor. She progressed to complete dilation and had a spontaneous vaginal delivery without an epidural, and without complication. She had a first-degree perineal laceration which was repaired. Her course was unremarkable and she was discharged home on day # 1. Peripartum Data Delivery Method: Natural Vaginal Laceration Description: Perineal - 1st Degree Episiotomy description: None Procedures: Artificial rupture of membranes Spontaneous vaginal delivery First-degree perineal laceration repair complications: none 1: Gender: Male Disposition of : home Status at Discharge Cognitive/behavioral status at discharge: oriented Functional status at discharge: independent ambulation Overall status at discharge: patient is progressing back to baseline Time Spent with Patient Time attestation: Total time spent providing and/or coordinating discharge services: Time spent: Less than 30 minutes Objective Labs 11/15/24 05:54 Exam Narrative Exam Narrative: Generally: Patient is sitting up in bed, nursing , no acute distress Fundus: Firm at U -1 Extremities: Trace edema, negative Homans Discharge Plan Discharge Plan Patient Disposition: Home Provider Discharge Comment: Call with fever, chills, or bleeding vaginally more than a pad in an hour Continue vitamins Ibuprofen 600 mg every 6 hours as needed for cramping Tylenol 650 mg every 6 hours as needed for pain Ice to the perineum or low back as needed Push oral fluids Discharge orders & Medications Prescriptions: Continued [id number] oil 400 mcg-35 mg -25 mg-5 mg tablet,chewable PO Ferretts Carbonyl Iron 18 mg iron tablet,chewable 18 mg PO DAILY citalopram [Celexa] 20 mg tablet 20 mg PO DAILY Qty: 30 4RF hydroxyzine HCl 25 mg tablet 25 mg PO BID PRN (Reason: anxiety) Qty: 20 2RF fluticasone propionate 50 mcg/actuation spray,suspension 1 spray intranasal DAILY Rx Instructions: administer into each nostril Discontinued pantoprazole [Protonix] 20 mg tablet,delayed release (DR/EC) 20 mg PO DAILY Qty: 30 3RF bupropion HCl 100 mg tablet 100 mg PO ONCE citalopram [Celexa] 10 mg tablet 10 mg PO DAILY Qty: 10 0RF Follow up/Referrals: Arely Barron MD [Physician, INTERACTIVE DESIGNER] - 12/26/24 8:00 am Referral Note: 6 week visit Diet/Activity/Treatments Diet: Regular Activity: Nothing in the vagina for 6 weeks Skin/Wound/Dressing Care Report to your healthcare provider any signs of infection, such as:: chills, fever, increased pain and unusual drainage Visit Report/Discharge Packet Instructions: Varicose Veins, Depression, DI for Labor and Delivery, Vaginal Stand Alone Forms: Patient Portal/API, Stroke Signs & Symptoms Discharge Data Primary Care Provider: Miscellaneous,Doctor
== END 2024-11-15 14:40 | disposition home or self-care (01) | DRG 807 ==
PROVIDERS: Admitting Provider Obstetrics & Gynecology; Referring Provider Obstetrics & Gynecology; Visit Provider Obstetrics & Gynecology
DX: O70.0 First degree perineal laceration during delivery (principal); Z37.0 Single live birth; Z3A.39 39 weeks gestation of pregnancy
CPT/HCPCS: 36415; 59050; 85014; 85018; G0379; J2590

== ENCOUNTER 2024-11-18 14:04 | Emergency (ER) | payer OTHER, SELFPAY ==
[2024-11-18 14:21] VITALS: BP 128/7; PULSE 82; RESP 16; TEMP 36.3; O2SAT 100; BMI 31.1
--- NOTE | 2024-11-18 14:43 | ED.EXTPRO ---
HPI - Extremity Problem <Lyric Castellanos PA-C - Last Filed: 11/18/24 17:36> General Chief complaint: Extremity Problem,Nontraumatic Stated complaint: Irregular Clots Post- t-4, Bulging Veins Time Seen by Provider: 11/18/24 14:41 Source: patient Mode of arrival: Ambulatory History of Present Illness HPI Narrative: 28-year-old female as of November 14, 2024 presents for chief complaint of left lower extremity swelling. She states it began immediately after delivery. She is denying any known injury, she is denying any numbness, tingling, she describes it was painful and heavy. Her 2nd issue is passing what she described as ?placenta?. She shows me a mobile phone picture and it does appear to be gelatinous and possibly some products of conception. She is reporting no abdominal pain, no hemorrhage, but has passed a couple of clots daily since normal vaginal delivery. She did deliver her placenta in the hospital prior to discharge and states she was ?given a full dose of Pitocin at that time?. She reports no fever, urinary symptoms, nausea or vomiting. No abdominal pain, back pain or flank pain. She did contact her PCP Dr. Pina Carrasco who directed her here to rule out DVT. She is denying any difficulty breathing, cough, chest pain, palpitations, lightheadedness, weakness, fever, chills, body aches or joint pains, she is on no blood thinners and has no prior history of any clotting disorder that she is aware of but does endorse varicose veins in the same leg and underwent vein stripping/removal several years ago. 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 She generally wears thigh high compression stockings at work. No recent travel. She is currently . All other systems reviewed and are negative. Related Data Home Medications ?Medication ?Instructions ?Recorded ?Confirmed fluticasone propionate 50 1 spray intranasal DAILY 12/09/20 11/09/24 mcg/actuation nasal spray,suspension [id number] 400 mcg-om3 35 mg-dha 25 tab PO 05/04/24 11/09/24 mg-epa 5 mg-fish oil chewable tablet iron, carbonyl 18 mg iron chewable 18 mg PO DAILY 05/04/24 11/09/24 tablet (Ferretts Carbonyl Iron) Previous Rx's ?Medication ?Instructions ?Recorded citalopram 20 mg tablet (Celexa) 20 mg PO DAILY #30 tabs 10/26/24 hydroxyzine HCl 25 mg tablet 25 mg PO BID PRN anxiety #20 tabs 10/26/24 Allergies Allergy/AdvReac Type Severity Reaction Status Date / Time No Known Drug Allergies Allergy Verified 11/18/24 14:21 Review of Systems <Lyric Castellanos PA-C - Last Filed: 11/18/24 17:36> Review of Systems Narrative: All other systems reviewed and are negative. Patient History <Lyric Castellanos PA-C - Last Filed: 11/18/24 17:36> Medical History Sore nipples due to Vacuum-assisted vaginal delivery Low back pain during in second trimester Varicose veins during , antepartum Gastroesophageal reflux in Seasonal allergies Anxiety (~2015) Abnormal Pap smear of cervix (~2015) Acne (~2018) Varicose veins of bilateral lower extremities with pain (~2017) Surgical History History of vascular surgery Family History Mother Hypertension Uterine fibroid Father Adopted Grandmother Vertigo Grandfather Unknown family medical history Grandmother No problems noted. 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 ) special zen needs: No travel history: over 6 months ago seatbelt use: always helmet use: Yes working smoke detector in home: Yes fire extinguisher in home: Yes carbon monox detector in home: Yes firearms in home: Yes firearms unloaded and locked: Yes do you feel safe at home: Yes Smoking Status: Never smoker Tobacco: How many years used: 2 quit status: has quit before second hand exposure: No alcohol intake: former (~3/week when not ) substance use type: does not use during the past year weight has: remained stable well-balanced diet: daily or most days daily servings fruits/ve or more times/day caffeine: Yes (Normally a lot. Has really cut down. One cup a day. ) Type(s) of exercise: walking frequency: daily duration: 45-60 minutes/day Smoking Status: Never smoker Exam <Lyric Castellanos PA-C - Last Filed: 11/18/24 17:36> Initial Vital Signs Initial Vital Signs: Vital Signs Temperature 97.4 F L 11/18/24 14:21 Pulse Rate 82 11/18/24 14:21 Respiratory Rate 16 11/18/24 14:21 Blood Pressure 128/7 L 11/18/24 14:21 Pulse Oximetry 100 11/18/24 14:21 Oxygen Delivery Method Room Air 11/18/24 14:21 Vital signs reviewed and are normal. Const General: cooperative, healthy appearing, comfortable, well developed and No acute distress [facility] Head: normal to inspection and normocephalic Face and sinus: normal facial exam and face symmetric Mouth: oral mucosae normal, lip normal and tongue normal Eyes General: Yes appearance normal, both eyes and all related structures Conjunctivae: conjunctivae normal Other: No pallor. Neck Neck: normal visual inspection and full ROM Lymphatic: No lymphadenopathy Chest Chest: normal inspection of the chest Resp Effort & Inspection: normal respiratory effort Auscultation: clear to auscultation bilaterally, no crackles, no rales, no rhonchi and no wheezes Cardio Rate: regular rate Rhythm: regular rhythm GI Inspection: normal to inspection and non-distended Palpation: soft and no hepatosplenomegaly Percussion: normal to percussion Auscultation: normal bowel sounds Other: Vaginal speculum exam is performed by Dr. Barron. Advised no abnormalities on exam. Back/Spine/Pelvis Other: No CVA tenderness. Skin Other: Normal color, temperature, turgor, normal capillary refill. Mild brown discoloration to the popliteal space on the left lower extremity, no guarding. No fluctuance. Visible varicosities quite torturous. Warm, not hot to the touch. No redness or breaks in the skin. Extrem Left lower extremity: full ROM and no joint enlargement Other: Posterior visible large varicosities inferior thigh and popliteal space. No calf tenderness. Negative Corrina's Sign. Full weight bear. <Ruba Jay MD - Last Filed: 11/19/24 07:09> Initial Vital Signs Initial Vital Signs: Vital Signs Temperature 97.4 F L 11/18/24 14:21 Pulse Rate 82 11/18/24 14:21 Respiratory Rate 16 11/18/24 14:21 Blood Pressure 128/7 L 11/18/24 14:21 Pulse Oximetry 100 11/18/24 14:21 Oxygen Delivery Method Room Air 11/18/24 14:21 Course <Lyric Castellanos PA-C - Last Filed: 11/18/24 17:36> Orders Ordered: ED Orders 11/18/24 14:51 US pelvic complete Stat US periph venous low extrem lt Stat 11/18/24 16:38 CBC Auto Diff [Complete Blood Count AUTO DIFF] Stat CMP [Comprehensive Metabolic Panel] Stat Consultations Consultation #1: Discussed the patient with on-call Dr. Gutierrez. Advising me she would contact Dr. Barron and call back to discuss the plan. Dr. Barron (delivering provider) will come by to see this patient in the ED. Consultation #2: Dr. Barron consulted, examined the patient and viewed the US. Advised her office will contact the patient tomorrow morning to schedule a F/U in-office. For her superficial varicosities, likely thrombophlebitis: recommended baby aspirin daily, ibuprofen, heat, elevation. Plans to perform pelvic examination in ED. Vital Signs Vital signs: Vital Signs - 8 hr 11/18/24 14:21 11/18/24 17:31 Temperature 97.4 F L 97.3 F L Pulse Rate 82 73 Respiratory Rate 16 16 Blood Pressure 128/7 L 121/80 Pulse Oximetry 100 99 Oxygen Delivery Method Room Air Room Air <Ruba Jay MD - Last Filed: 11/19/24 07:09> Orders Ordered: ED Orders 11/18/24 14:51 US pelvic complete Stat US periph venous low extrem lt Stat 11/18/24 16:38 CBC Auto Diff [Complete Blood Count AUTO DIFF] Stat CMP [Comprehensive Metabolic Panel] Stat Vital Signs Vital signs: Vital Signs - 8 hr 11/18/24 14:21 11/18/24 17:31 Temperature 97.4 F L 97.3 F L Pulse Rate 82 73 Respiratory Rate 16 16 Blood Pressure 128/7 L 121/80 Pulse Oximetry 100 99 Oxygen Delivery Method Room Air Room Air MDM - Extremity (Nontraumatic) <Lyric Castellanos PA-C - Last Filed: 11/18/24 17:36> Lab Data Lab results narrative: CBC WNL (Hgb 10.8, down from 12.7 post-). CMP WNL, slight elevation ALT 41/AST 37. 11/18/24 16:38 11/18/24 16:38 Labs: Lab Results 11/18/24 Range/Units 16:38 WBC 10.8 (4.5-11.0) X10^3/uL RBC 3.78 L (4.0-5.2) X10^6/uL Hgb 12.0 (12.0-16.0) g/dL Hct 34.8 L (36-46) % MCV 92.0 (80-100) fL MCH 31.8 (26-34) PG MCHC 34.6 (30-36) % RDW 13.2 (11.6-14.8) % Plt Count 209 (150-400) X10^3/uL Neut % (Auto) 77.7 H (50-75) % Lymph % (Auto) 16.6 L (25-40) % [place] % (Auto) 4.4 (3-14) % Eos % (Auto) 1.0 L (2-4) % Baso % (Auto) 0.3 (0-2) % Neut # (Auto) 8400 H (5590-1086) /uL Lymph # (Auto) 1800 (7435-2778) /uL [place] # (Auto) 500 (0-900) /uL Eos # (Auto) 100 (0-450) /uL Baso # (Auto) 0 (0-100) /uL Sodium 136 L (137-145) mmol/L Potassium 4.1 (3.4-5.1) mmol/L Chloride 106 (98-107) mmol/L Carbon Dioxide 26 (22-32) mmol/L BUN 8 (7-17) mg/dL Creatinine 0.57 (0.52-1.04) mg/dL Estimated GFR > 60 (>60) mL/min BUN/Creatinine Ratio 14.0 (6-22) Glucose 78 (70-99) mg/dL Calcium 8.8 (8.4-10.2) mg/dL Total Bilirubin 0.2 (0.2-1.3) mg/dL AST 37 H (14-36) IU/L ALT 41 H (<35) IU/L Alkaline Phosphatase 107 (38-126) U/L Total Protein 6.7 (6.3-8.2) g/dL Albumin 3.8 (3.5-5.0) g/dL Globulin 2.9 (1.7-4.1) g/dL Albumin/Globulin Ratio 1.3 (1.0-2.8) Imaging Data US - DVT: My Impression: Per lockstitch waistband setter: prominent vessels in flamed medial thigh consistent with thrombosed varicosities branch off of the distal greater saphenous vein not near the deep vein. US-Pelvic complete: My Impression: Per lockstitch waistband setter: REAL=4.3x1.5x3.0cm, non-vascular, Focal mass? Retained products of conception? versus clot. Uterus ante 18.0 x 8.5, EEC 5.8mm fundal. MDM Narrative Medical decision making narrative: Well-appearing 28-year-old female smiling pleasantly conversing. Chief complaint was left lower leg swelling and heaviness, ultrasound revealed no DVT. Prominent vessels inflammation of the medial thigh and thrombosed varicosities the branch off the distal greater saphenous vein not near deep vein. She has visible varicosities on exam with mild swelling in the popliteal and inferior thigh on the left. She has a history of some vein stripping, or hopeful this will resolve but she will start per Dr. Barron's recommendation a baby aspirin 81 mg as well as OTC ibuprofen 400 mg every 8 hours with food for the next several days, apply moist heat or heating pad, she may do a trial of ice per Dr. Barron as she has seen this helpful. Her CBC is within normal limits she has no weakness lightheadedness, the 2nd issue was passing some possibly membranes and having some clots but Dr. Barron examined her and we will see her again this week in the office for follow up. Her ultrasound was reviewed by Dr. Barron as well. Also noted Dr. Barron reexamined the placenta as the patient wanted to bring it home, she saw no abnormalities. Case was discussed with my attending Dr. Jay who is in agreement with this plan. Red flag warning signs are reviewed in great detail patient will not hesitate to return to the emergency department if she feels unwell or develops any new worrisome symptoms. We did discuss prevention of varicosities using compression stockings, elevating her legs and of course consider follow up with her PCP and/or vascular surgeon if she would like to pursue removal once more. <Ruba Jay MD - Last Filed: 11/19/24 07:09> Lab Data Labs: Lab Results 11/18/24 Range/Units 16:38 WBC 10.8 (4.5-11.0) X10^3/uL RBC 3.78 L (4.0-5.2) X10^6/uL Hgb 12.0 (12.0-16.0) g/dL Hct 34.8 L (36-46) % MCV 92.0 (80-100) fL MCH 31.8 (26-34) PG MCHC 34.6 (30-36) % RDW 13.2 (11.6-14.8) % Plt Count 209 (150-400) X10^3/uL Neut % (Auto) 77.7 H (50-75) % Lymph % (Auto) 16.6 L (25-40) % [place] % (Auto) 4.4 (3-14) % Eos % (Auto) 1.0 L (2-4) % Baso % (Auto) 0.3 (0-2) % Neut # (Auto) 8400 H (8642-3562) /uL Lymph # (Auto) 1800 (6051-3581) /uL [place] # (Auto) 500 (0-900) /uL Eos # (Auto) 100 (0-450) /uL Baso # (Auto) 0 (0-100) /uL Sodium 136 L (137-145) mmol/L Potassium 4.1 (3.4-5.1) mmol/L Chloride 106 (98-107) mmol/L Carbon Dioxide 26 (22-32) mmol/L BUN 8 (7-17) mg/dL Creatinine 0.57 (0.52-1.04) mg/dL Estimated GFR > 60 (>60) mL/min BUN/Creatinine Ratio 14.0 (6-22) Glucose 78 (70-99) mg/dL Calcium 8.8 (8.4-10.2) mg/dL Total Bilirubin 0.2 (0.2-1.3) mg/dL AST 37 H (14-36) IU/L ALT 41 H (<35) IU/L Alkaline Phosphatase 107 (38-126) U/L Total Protein 6.7 (6.3-8.2) g/dL Albumin 3.8 (3.5-5.0) g/dL Globulin 2.9 (1.7-4.1) g/dL Albumin/Globulin Ratio 1.3 (1.0-2.8) Discharge Plan Departure Patient Disposition: Home Clinical Impression: Thrombophlebitis bleeding Qualifiers: hemorrhage type: unspecified Qualified Code(s): O72.1 - Other immediate hemorrhage Instructions: Superficial Thrombophlebitis Activity Restrictions/Additional Instructions: Your ultrasound showed inflammation of the superficial veins in your left leg, you do have varicose veins, I would like you to start Dr. Barron's recommended treatment including baby aspirin 81 mg daily, you may take ibuprofen OTC 400 mg every 8 hours with food, you may apply warmth moist compresses or heating pad to the back of your leg over the veins, you may do a trial of ice and see if this helps your discomfort, please monitor the area for any increased swelling, redness, heat, increased pain, pain that travels up the leg, any cough, difficulty breathing, lightheadedness or any other worrisome symptoms return to the emergency department immediately. Per Dr. Barron her office will contact you in the morning (Debra) to schedule a follow up appointment in office this week. Regarding your bleeding, your lab work was within normal limits, and again you will see Dr. Barron in follow up. Please report any other discharge, if you have increased bleeding or have any other discharge, develop any abdominal pain, vaginal pain, back pain, urinary symptoms, malodor again return to the emergency department. Per Dr. Barron no issues with your breast milk and taking ibuprofen or aspirin. Prescriptions: No Action [id number]-fpr-lyo-mied oil 400 mcg-35 mg -25 mg-5 mg tablet,chewable PO Ferretts Carbonyl Iron 18 mg iron tablet,chewable 18 mg PO DAILY citalopram [Celexa] 20 mg tablet 20 mg PO DAILY Qty: 30 4RF hydroxyzine HCl 25 mg tablet 25 mg PO BID PRN (Reason: anxiety) Qty: 20 2RF fluticasone propionate 50 mcg/actuation spray,suspension 1 spray intranasal DAILY Rx Instructions: administer into each nostril Referrals: Miscellaneous,Doctor[facility] [Primary Care Provider, Medical] Stand Alone Forms: Patient Portal/API ED Sign-out <Ruba Jay MD - Last Filed: 11/19/24 07:09> Cosign ED Attending Cosignature Attestation: I was immediately available in the department for consultation throughout this patient's visit. Ruba Jay MD
--- NOTE | 2024-11-18 14:51 | DI.US.S_ITS ---
PROCEDURE: US PERIPH VENOUS LOW EXTREM LT INDICATIONS: EDEMA 4 DAYS POST TECHNIQUE: Real-time imaging, as well as color and pulse Doppler interrogation, were performed of the lower extremity deep veins from the inguinal ligament to the popliteal fossa, with documentation of the visualized calf veins. COMPARISON: None. FINDINGS: The common femoral, femoral, popliteal, and the visualized calf veins are normally compressible, and free of intraluminal thrombus. Color and pulse Doppler demonstrate normal phasic intraluminal flow. There is normal augmentation response to distal compression maneuver. Thrombosed superficial varicosities, that branch off the distal great saphenous vein are present. IMPRESSION: No findings of lower extremity deep venous thrombosis. Thrombosed superficial varicosities branching off the distal great saphenous vein are present. These are not in close proximity to a deep vein. Combined, length is probably greater than 5 cm. Dictated by: Eddie Sweet M.D. on 11/18/2024 at 14:50 Approved by: Eddie Sweet M.D. on 11/18/2024 at 14:51
--- NOTE | 2024-11-18 14:51 | DI.US.S_ITS ---
PROCEDURE: US PELVIC COMPLETE INDICATIONS: 4 DAYS POST ; POSSIBLE RPOC TECHNIQUE: Real-time scanning was performed of the pelvic organs, with image documentation. Additional endovaginal scanning was necessary due to incomplete visualization of the adnexal and endometrial structures by transabdominal scanning. COMPARISON: None. FINDINGS: Uterus: appearance of the uterus, measuring 18 x 9 cm. Endometrium measures 6 mm in thickness at the fundus. In the lower uterine segment, more focal thickening is seen measuring 4.3 x 3 x 1.5 cm. No significant vascularity. Ovaries: Not seen Other: No pathologic free fluid. IMPRESSION: Lower uterine segment endometrial thickening measuring up to 4.3 x 3 x 1.5 cm. No focal vascularity on color Doppler. This could represent clot/debris. Consider future imaging surveillance to assess for resolution. Dictated by: Eddie Sweet M.D. on 11/18/2024 at 14:48 Approved by: Eddie Sweet M.D. on 11/18/2024 at 14:50
--- NOTE | 2024-11-18 15:56 | PC.NURSE ---
Pt reports having varicose veins that were really bad throughout . Pt states she wore compression socks. Pt states the varicose veins have improved since giving . Pt states that taking ibuprofen/Tylenol has helped her pain. Large round lump on left upper, back part of thigh. Pt states she also was passing large clots at home following , pt was told her placenta disintegrated after delivery of child. Pt states she has had no cramping as of recently. Pt reports giving a few days ago; denies history of any clotting disorders or issues with bleeding in the past.
[2024-11-18 16:45] LABS: Add Manual Diff / Slide Review NO; Basophils Absolute Auto 0 /uL (0-100); Basophils Percent Auto 0.3 % (0-2); Eosinophils Absolute Auto 100 /uL (0-450); Hematocrit 34.8 % (36-46); Lymphocytes Absolute Auto 1800 /uL (1100-4500); Lymphocytes Percent Auto 16.6 % (25-40); Mean Corpuscular HGB Conc 34.6 % (30-36); Mean Corpuscular Hemoglobin 31.8 PG (26-34); Monocytes Absolute Auto 500 /uL (0-900); Monocytes Percent Auto 4.4 % (3-14); Neutrophils Absolute Auto 8400 /uL (1500-7000); Neutrophils Percent Auto 77.7 % (50-75); Platelet Count 209 X10^3/uL (150-400); Red Blood Cell Count 3.78 X10^6/uL (4.0-5.2); Red Cell Distribution Width 13.2 % (11.6-14.8); White Blood Cell Count 10.8 X10^3/uL (4.5-11.0)
[2024-11-18 16:57] LABS: Alanine Aminotransferase 41 IU/L (<35); Albumin 3.8 g/dL (3.5-5.0); Albumin Globulin Ratio 1.3 (1.0-2.8); Alkaline Phosphatase 107 U/L (38-126); Aspartate Aminotransferase 37 IU/L (14-36); Bilirubin Total 0.2 mg/dL (0.2-1.3); Blood Urea Nitrogen 8 mg/dL (7-17); Calcium 8.8 mg/dL (8.4-10.2); Carbon Dioxide 26 mmol/L (22-32); Chloride 106 mmol/L (98-107); Estimated Glomerular Filt Rate > 60 mL/min (>60); Globulin 2.9 g/dL (1.7-4.1); Glucose 78 mg/dL (70-99); HEMOLYSIS < 15 (0-50); Potassium 4.1 mmol/L (3.4-5.1); Sodium 136 mmol/L (137-145); Total Protein 6.7 g/dL (6.3-8.2)
[2024-11-18 17:31] VITALS: BP 121/80; PULSE 73; RESP 16; TEMP 36.3; O2SAT 99
--- NOTE | 2024-11-18 18:07 | PM.CN.IH.1 ---
History of Present Illness Consult details Date Patient Seen: 11/18/24 Time Patient Seen: 16:45 Chief complaint: Irregular Clots Post- t-4, Bulging Veins Reason for consult: bleeding, tenderness left leg Requesting provider: Ruba Jay Narrative: Patient is a 28-year-old 3 para 2 who had a spontaneous vaginal delivery on November 14, 2028. She presented to the emergency department this afternoon with pain and swelling of her left posterior thigh just above the knee. She also reports that yesterday she passed what she thought was a piece of placenta. She had not had any significant bleeding since the delivery. She denies any fever, chills, or foul-smelling drainage. She has had varicose vein surgery in the area of the swelling of the left leg. No shortness of breath. Meds Home Medications and Allergies Home Medications ?Medication ?Instructions ?Recorded ?Confirmed ?Type fluticasone propionate 50 1 spray intranasal DAILY 12/09/20 11/09/24 History mcg/actuation nasal spray,suspension [id number] 400 mcg-om3 35 mg-dha 25 tab PO 05/04/24 11/09/24 History mg-epa 5 mg-fish oil chewable tablet iron, carbonyl 18 mg iron chewable 18 mg PO DAILY 05/04/24 11/09/24 History tablet (Ferretts Carbonyl Iron) citalopram 20 mg tablet (Celexa) 20 mg PO DAILY #30 tabs 10/26/24 11/09/24 Rx hydroxyzine HCl 25 mg tablet 25 mg PO BID PRN anxiety #20 tabs 10/26/24 11/09/24 Rx Allergies Allergy/AdvReac Type Severity Reaction Status Date / Time No Known Drug Allergies Allergy Verified 11/18/24 14:21 Review of Systems Constitutional Constitutional: Denies chills and Denies fever(s) Cardiovascular Cardiovascular: Denies dyspnea on exertion and Denies orthopnea Respiratory Respiratory: Denies cough and Denies dyspnea on exertion Genitourinary Comments: She does report passing what she thought was a piece of the placenta yesterday Exam Vital Signs (past 8 hours): - 11/18/24 14:21 11/18/24 17:31 Temperature 97.4 F L 97.3 F L Pulse Rate 82 73 Respiratory Rate 16 16 Blood Pressure 128/7 L 121/80 Pulse Oximetry 100 99 Oxygen Delivery Method Room Air Room Air Oxygen Delivery Method Room Air Narrative Exam Narrative: Generally: Patient is sitting up on gurney, no acute distress Left leg: Just above the knee posteriorly there is a 6 cm x 6 cm area that is warm to touch. There is also some erythema. There are some white scars in the area from varicose vein surgery. Abdomen: Uterus is not tender. Vagina: A lighted speculum was placed into the vagina. The cervical os could be visualized. There was scant blood coming from the os. No membranes or tissue visualized. Objective Labs 11/18/24 16:38 11/18/24 16:38 Labs: Laboratory Results - last 24 hr 11/18/24 16:38 WBC 10.8 RBC 3.78 L Hgb 12.0 Hct 34.8 L MCV 92.0 MCH 31.8 MCHC 34.6 RDW 13.2 Plt Count 209 Neut % (Auto) 77.7 H Lymph % (Auto) 16.6 L Nobles % (Auto) 4.4 Eos % (Auto) 1.0 L Baso % (Auto) 0.3 Neut # (Auto) 8400 H Lymph # (Auto) 1800 Nobles # (Auto) 500 Eos # (Auto) 100 Baso # (Auto) 0 Sodium 136 L Potassium 4.1 Chloride 106 Carbon Dioxide 26 BUN 8 Creatinine 0.57 Estimated GFR > 60 BUN/Creatinine Ratio 14.0 Glucose 78 Calcium 8.8 Total Bilirubin 0.2 AST 37 H ALT 41 H Alkaline Phosphatase 107 Total Protein 6.7 Albumin 3.8 Globulin 2.9 Albumin/Globulin Ratio 1.3 Duplex of the left upper extremity: Superficial thrombophlebitis. No DVT. Ultrasound of the pelvis: Avascular debris in the lower uterine segment consistent with clot. [facility] Medical History Sore nipples due to Vacuum-assisted vaginal delivery Low back pain during in second trimester Varicose veins during , antepartum Gastroesophageal reflux in Seasonal allergies Anxiety (~2015) Abnormal Pap smear of cervix (~2015) Acne (~2018) Varicose veins of bilateral lower extremities with pain (~2017) Surgical History History of vascular surgery Family History Mother Hypertension Uterine fibroid Father Adopted Grandmother Vertigo Grandfather Unknown family medical history Grandmother No problems noted. 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 ) special zen needs: No travel history: over 6 months ago Safety seatbelt use: always helmet use: Yes working smoke detector in home: Yes fire extinguisher in home: Yes carbon monox detector in home: Yes firearms in home: Yes firearms unloaded and locked: Yes do you feel safe at home: Yes Tobacco & Substance Use Smoking Status: Never smoker Tobacco: How many years used: 2 quit status: has quit before second hand exposure: No alcohol intake: former (~3/week when not ) substance use type: does not use Diet and Exercise during the past year weight has: remained stable well-balanced diet: daily or most days daily servings fruits/ve or more times/day caffeine: Yes (Normally a lot. Has really cut down. One cup a day. ) Type(s) of exercise: walking frequency: daily duration: 45-60 minutes/day Assessment & Plan Assessment & Plan narrative: Assessment: 28-year-old 3 para 2 with superficial thrombophlebitis of the left posterior thigh Passage of clots/tissue yesterday The placenta was still present on labor and delivery and was examined. There were no pieces of the placenta missing. Plan: Discharge to home Ibuprofen 600 mg every 6 hours Heat to the area of superficial thrombophlebitis 81 mg aspirin Patient to follow-up in the office later this week, RN from the office will call on Tuesday Time-Based Coding :: [TOTAL MINUTES] spent with patient and on the chart (including review of chart, obtaining history, exam, reviewing outside data, placing orders, documenting exam and treatment plan, and counseling patient) on [DATE]. PROFEE Charge Codes Inpatient or Observation consultation: 76712
== END 2024-11-18 17:32 | disposition home or self-care (01) ==
PROVIDERS: Emergency Provider Physician Assistant Medical
DX: O72.1 Other immediate postpartum hemorrhage (principal); I80.02 Phlebitis and thrombophlebitis of superficial vessels of left lower extremity
CPT/HCPCS: 76856; 80053; 85025; 93971; 99281; 99284